=== PATIENT | female | born 1970 | race Caucasian/White ===

== ENCOUNTER 2016-08-24 16:02 | Emergency (ER) | payer MEDICAID ==
[~2016-08-24] VITALS: Ht 154.9 cm; Wt 98.2 kg
[2016-08-24 16:03] VITALS: Ht 154.9 cm; Wt 98.2 kg
--- NOTE | 2016-08-24 16:42 | ERD ---
ER Documentation Chief Complaint Date/Time DATE: 08/24/16 TIME: 16:41 Chief Complaint ABD PAIN RADIATING RT LEG HPI 45-year-old female who presented emergency room for right-sided pelvic pain for more than a month. Pain was described as sharp that radiates to her right lower extremity. Pain got worse today. Pain was described as sharp and squeezing with a rate of over 10 at this time. Also reports whitish vaginal discharge. Sexually active with her only. States that her has whitish penile discharge but no bleeding. Denies headache, loss of consciousness, dizziness, blurry vision, changes in vision, photophobia, facial pain, ear pain, throat pain, difficulty swallowing, neck pain, shoulder pain, chest pain, cough, hemoptysis, back pain, loss of appetite, nausea, vomiting, hematochezia, diarrhea, constipation, hematuria, dysuria, , the possibility of being , vaginal lesions, vaginal rashes, bladder and bowel incontinences, extremity weakness, extremity tenderness, numbness or tingling sensation, difficulty walking, recent travel, recent exposure to illness, recent antibiotic use in the last 3 months, fever, chills. Allergy: Tetracycline, penicillin, azithromycin. PMH: Hypothyroidism. Family medical history: AO LMP: August 14, 2016. Medications: Levothyroxine. Surgery: Denies. Primary Social History: Denies. Denies smoking, use of alcohol, use of illegal drugs. ROS All systems reviewed and are negative except as per history of present illness. Medications Home Meds Active Scripts Ondansetron (Ondansetron Odt) 4 Mg Tab.rapdis, 4 MG PO Q6H Y for NAUSEA AND/OR VOMITING, #10 TAB Prov:NICOLAS ABEL 08/24/16 Hydrocodone/Acetaminophen ([place] 5-325 Tablet) 1 Each Tablet, 1 TAB PO Q6H Y for PAIN, #7 TAB Prov:NICOLAS ABEL 08/24/16 Clindamycin Hcl* (Clindamycin Hcl*) 300 Mg Capsule, 300 MG PO TID for 10 Days, CAP Prov:PASILABANNICOLAS F 08/24/16 Allergies Allergies: Coded Allergies: azithromycin (Unverified Allergy, Intermediate, 08/24/16) Penicillins (Verified Allergy, Mild, 08/24/16) amoxicillin (Verified Allergy, Mild, 08/24/16) tetracycline (Verified Allergy, Unknown, 08/24/16) PMhx/Soc History of Surgery: Yes (caesarian section, appendectomy, gallbladder removal) Anesthesia Reaction: No Hx Neurological Disorder: No Hx Respiratory Disorders: No Hx Cardiac Disorders: No Hx Psychiatric Problems: No Hx Miscellaneous Medical Probl: No Hx Alcohol Use: No Hx Substance Use: No Hx Tobacco Use: No Smoking Status: Never smoker Physical Exam Vitals Vital Signs Date Time Temp Pulse Resp B/P Pulse Ox O2 Delivery O2 Flow Rate FiO2 08/24/16 20:25 99.1 70 18 107/69 96 Room Air 08/24/16 16:03 97.8 80 19 153/79 100 Physical Exam CONSTITUTIONAL: Well-appearing; well-nourished; in no apparent distress. HEAD: Normocephalic; atraumatic. EYES: Conjunctiva clear, sclera non-icteric, EOM intact. PERRL Ears: Hearing intact. EACs clear, TMs non-bulging, non-inflamed, translucent & mobile, ossicles normal appearance, No obstructions, no erythema, no discharges Nose: No obstructions. No polyps. No external lesions. Mucosa non-inflamed. No external lesions, septum and turbinates normal. No rhinorrhea. No discharges. Frontal sinus is non-tender to palpation. Maxillary sinus is non-tender to palpation. MOUTH: Moist mucous membranes, no lesion, no obstructions, no vesicles, no thrush, patent airway Throat: Uvula in midline. Right tonsil is +1 with no erythema, no exudate. Left tonsil is +1 with no erythema, no exudate. Tolerating secretions well. Good gag reflex. Patent airway. Neck: Supple, without lesions, bruits, or adenopathy. No mass. Thyroid non- enlarged and non-tender to palpation. CHEST: Symmetrical chest. Respirations even and not labored. No retractions noted. CARDIOVASCULAR: Normal S1, S2. RRR. No murmurs, gallops. RESPIRATORY: Normal chest excursion with respiration; breath sounds clear and equal bilaterally; no wheezes, rhonchi, or rales. Breathing even and unlabored. Speaking in clear, full, and complete sentences w/ ease. ABDOMEN: Normal bowel sounds normal. Soft, round, non-distended, non-guarding, no rebound, no organomegaly, no masses, no pulsating abdominal mass. No hernia. No peritoneal signs. Right pelvic area has tenderness to palpation. No rebound. Able to jump 5 times without developing right lower abdominal pain. Negative Emma sign. Negative on Rov[place] sign. : No CVA tenderness. BACK: Symmetrical shoulder. Spine is midline without deformity, tenderness. No evidence of trauma or deformity. PELVIS: Stable pelvis. No evidence of trauma or deformity. MUSCULOSKELETAL: Normal gait and station. No misalignment, asymmetry, crepitation, defects, tenderness, masses, effusions, decreased range of motion, instability, atrophy or abnormal strength or tone in the head, neck, spine, ribs , pelvis or extremities. No calf tenderness. NEUROVASCULAR: Distal pulses are present. Pedal pulse are present, equal, and normal. Capillary refills are < 2 seconds. NEUROLOGIC: Alert and oriented x4. Speaks full and clear sentences. Cranial Nerves II-XII normal. Sensation to pain, touch, and proprioception normal. Grossly unremarkable. No neurologic deficits. Romberg test is negative. PSYCHOLOGICAL: The patients mood and manner are appropriate. No hallucinations , delusions. Not SI. Not HI. Has the capacity to decide for self SKIN: Normal for age and ethnicity; warm; dry; good turgor; no apparent lesions or exudates. No rashes, hives, discoloration. Intact. Result Diagram: 08/24/16165608/[id number]/161656 Results 24 hrs Laboratory Tests Test 08/24/16 16:48 08/24/16 16:57 Urine Color LT. YELLOW Urine Clarity CLEAR Urine pH 6.0 Urine Specific [place] <=1.005 Urine Ketones NEGATIVE Urine Nitrite NEGATIVE Urine Bilirubin NEGATIVE Urine Urobilinogen 0.2 E.U./dL Urine Leukocyte Esterase TRACE Urine Microscopic RBC 0-2/HPF Urine Microscopic WBC 0-2/HPF Urine Squamous Epithelial Cells MANY Urine Bacteria RARE Urine Hemoglobin 1+ Urine Glucose NEGATIVE% Urine Total Protein NEGATIVE White Blood Count 10.010^3/ul Red Blood Count 4.9610^6/ul Hemoglobin 12.8g/dl Hematocrit 41.8% Mean Corpuscular Volume 84.3fl Mean Corpuscular Hemoglobin 25.8pg Mean Corpuscular Hemoglobin Concent 30.6g/dl Red Cell Distribution Width 16.3% Platelet Count 87382^3/UL Mean Platelet Volume 9.9fl Neutrophils % 69.0% Lymphocytes % 21.6% Monocytes % 6.9% Eosinophils % 1.6% Basophils % 0.6% Nucleated Red Blood Cells % 0.0/100WBC Neutrophils # 6.910^3/ul Lymphocytes # 2.210^3/ul Monocytes # 0.710^3/ul Eosinophils # 0.210^3/ul Basophils # 0.110^3/ul Nucleated Red Blood Cells # 0.010^3/ul Sodium Level 143mmol/L Potassium Level 4.2mmol/L Chloride Level 102mmol/L Carbon Dioxide Level 26mmol/L Anion Gap 19 Blood Urea Nitrogen 17mg/dl Creatinine 0.90mg/dl Glucose Level 120mg/dl Calcium Level 9.5mg/dl Total Bilirubin 0.3mg/dl Direct Bilirubin 0.00mg/dl Indirect Bilirubin 0.3mg/dl Aspartate Amino Transf (AST/SGOT) 21IU/L Alanine Aminotransferase (ALT/SGPT) 23IU/L Alkaline Phosphatase 76IU/L Total Protein 8.5g/dl Albumin 4.8g/dl Globulin 3.70g/dl Albumin/Globulin Ratio 1.29 Current Medications Medications (Trade) Dose Ordered Sig/Kvng Route PRN Reason Start Time Stop Time Status Last Admin Dose Admin Ceftriaxone Sodium (Rocephin) 250 mg ONCE ONCE IM 08/24/16 18:00 08/24/16 18:01 DC 08/24/16 19:00 Clindamycin HCl (Cleocin) 300 mg ONCE ONCE PO 08/24/16 18:00 08/24/16 18:01 DC 08/24/16 19:00 Procedures/MDM Examination: Please see physical examination. Disease process, medical treatment was explained to the patient and family member. They verbalized understanding and agreed with the diagnostic tests, medical treatment, and follow-up care. Radiology: Pelvic ultrasound Impression: 2 uterine fibroids identified measuring up to 2.2 cm. 1.3 cm minimally complex cystic lesion in the right ovary may be a hemorrhagic or corpus luteal cyst. Blood works: Reviewed. POC urine : Negative. Urinalysis: Reviewed. Case was discussed with supervising emergency room physician, Dr. Rosales Aguilar who agreed in my medical decision making. Treatment: [place]. Zofran. Ceftriaxone. Clindamycin. Re-evaluation: Denies headache, dizziness, blurred vision, neck pain, shoulder pain, chest pain, back pain, abdominal pain, pelvic pain. No episode of emesis here in the emergency department. Denies vaginal bleeding or active bleeding. There is no right upper/right lower/epigastric/left upper/left lower abdominal tenderness on light and deep palpation. Negative on Rovsing sign. Negative on [place] sign. No CVA tenderness. No peritoneal signs. Able to jump 5 times without developing right lower abdominal pain. No neurological deficits. No neurovascular deficits. Consultation: None. Differential diagnosis: Ovarian torsion versus ovarian cyst rupture versus ovarian cyst versus cholecystitis versus appendicitis versus sexually transmitted disease versus bacterial vaginosis Medical decision makin-year-old female who presented emergency room for right-sided pelvic pain for more than a month. Pain was described as sharp that radiates to her right lower extremity. Pain got worse today. Pain was described as sharp and squeezing with a rate of over 10 at this time. Also reports whitish vaginal discharge. Sexually active with her only. States that her has whitish penile discharge but no bleeding. Patient' s complaint, patient's history about her complaint, patient's presentation, my physical findings, diagnostic test results, my reevaluation are consistent with my final diagnosis of STD, PID, ovarian cysts, fibroids. Medications prescribed are the following: Clindamycin p.o. [place]. Zofran. Patient and family member are made aware of the side effects and adverse reactions of the medications prescribed. Instructed on when to seek emergent and medical attention in case allergic/anaphylactic reactions or severe side effects and or adverse reactions to medications. Patient and family member verbalized understanding. Patient instructed Instructed to follow-up with his PCP in 24-48 hours. Follow-up with active directory administrator in the next 48-72 hours. Was also instructed to have her sexual partner be seen and treated by his primary care physician. Instructed to Call 911 for chest pain, shortness of breath. Advised to come back here in ED as soon as possible for severity of symptoms which includes but not limited to: any new symptoms; shortness of breath/difficulty of breathing; cardiovascular changes; severe gastrointestinal symptoms; signs and symptoms of bleeding and or infection; signs of compartment syndrome/neurovascular changes; neurological changes/deficits. Patient and family member verbalized understanding. Upon discharge, patient is alert and oriented x 4, speaks full and clear sentences, denies pain, has no neurological deficits, has no neurovascular deficits, difficulty of breathing. Breathing even and unlabored. Lung sounds are clear to auscultation. Not in distress. Appears comfortable. Ambulatory with steady gait. No active bleeding. Appears satisfied with care provided here in ED. hemodynamically stable on discharge. Departure Diagnosis: Primary Impression: STD (female) Additional Impression: PID (acute pelvic inflammatory disease) Additional Instructions: Patient instructed Instructed to follow-up with his PCP in 24-48 hours. Follow-up with active directory administrator in the next 48-72 hours. Instructed to Call 911 for chest pain, shortness of breath. Advised to come back here in ED as soon as possible for severity of symptoms which includes but not limited to: any new symptoms; shortness of breath/difficulty of breathing; cardiovascular changes; severe gastrointestinal symptoms; signs and symptoms of bleeding and or infection; signs of compartment syndrome/neurovascular changes; neurological changes/deficits. Patient and family member verbalized understanding. NICOLAS ABEL August 24, 2016 16:42
[2016-08-24 17:04] LABS: ADD UMIC YES; URINE BILIRUBIN (Dip) NEGATIVE (NEGATIVE); URINE BLOOD (Dip) 1+ (NEGATIVE); URINE COLOR LT. YELLOW (YELLOW); URINE GLUCOSE (Dip) NEGATIVE (NEGATIVE); URINE KETONES (Dip) NEGATIVE (NEGATIVE); URINE LEUKOCYTE ESTERASE (Dip) TRACE (NEGATIVE); URINE NITRITE (Dip) NEGATIVE (NEGATIVE); URINE TOTAL PROTEIN (Dip) NEGATIVE (NEGATIVE); URINE UROBILINOGEN (Dip) 0.2 E.U./dL (0.1-1.0)
[2016-08-24 17:16] LABS: ADD SCAN DIFF NO
[2016-08-24 17:17] LABS: URINE RBCS 0-2 /HPF (0)
[2016-08-24 17:18] LABS: BASOPHIL # 0.1 10^3/ul (0.0-0.1); BASOPHILS % 0.6 % (0.0-2.0); EOSINOPHILS # 0.2 10^3/ul (0.0-0.5); EOSINOPHILS % 1.6 % (0.0-7.0); HEMATOCRIT 41.8 % (37.0-47.0); HEMOGLOBIN 12.8 g/dl (12.0-16.0); LYMPHOCYTES # 2.2 10^3/ul (0.8-2.9); LYMPHOCYTES % 21.6 % (15.0-51.0); MEAN CORPUSCULAR HEMOGLOBIN 25.8 pg (29.0-33.0); MEAN CORPUSCULAR HGB CONC 30.6 g/dl (32.0-37.0); MEAN CORPUSCULAR VOLUME 84.3 fl (82.0-101.0); MEAN PLATELET VOLUME 9.9 fl (7.4-10.4); MONOCYTE # 0.7 10^3/ul (0.3-0.9); MONOCYTES % 6.9 % (0.0-11.0); NEUTROPHIL # 6.9 10^3/ul (1.6-7.5); PLATELET COUNT 511 10^3/UL (140-415); RED BLOOD COUNT 4.96 10^6/ul (4.20-5.40); RED CELL DISTRIBUTION WIDTH 16.3 % (11.5-14.5)
[2016-08-24 17:18] LABS: BACTERIA,URINE RARE; SQUAMOUS EPITHELIAL CELL,UR MANY
--- NOTE | 2016-08-24 17:43 | RADRPT ---
PROCEDURE: US Pelvis CLINICAL INDICATION: right pelvic pain that radiates to right leg TECHNIQUE: Multiple sonographic images of the pelvis were obtained utilizing a transabdominal and endovaginal technique. The images were reviewed on a PACS workstation. COMPARISON: None. LMP: 08/13/2016 FINDINGS: The uterus is retroverted and measures 9.5 x 7.3 x 7.2 cm. The endometrial echo complex measures 10 mm in thickness. There is a 1.9 cm posterior intramural fibroid at the level of the upper body. There is a 2.2 cm anterior subserosal fibroid at the level of the upper body. The right ovary measures 3.4 x 2.7 x 2.4 cm. The left ovary measures 3.4 x 2.6 x 2.1 cm. There is no rmal vascular flow in both ovaries. There is a 1.3 cm cystic lesion with an eccentric low level internal echoes in the right ovary which may be a hemorrhagic or corpus luteal cyst. No significant pelvic free fluid is identified. IMPRESSION: 2 uterine fibroids are identified measuring up to 2.2 cm. 1.3 cm minimally complex cystic lesion in the right ovary may be a hemorrhagic or corpus luteal cyst . RPTAT: EE Physician Martha Date Time Electronically viewed and signed by Physician Martha on 08/24/2016 17:43 VALERIE
[2016-08-24 17:48] LABS: ALBUMIN 4.8 g/dl (3.3-4.9); POTASSIUM 4.2 mmol/L (3.5-5.1)
[2016-08-24 17:50] LABS: CREATININE 0.9 mg/dl (0.44-1.00)
[2016-08-24 17:51] LABS: ALBUMIN/GLOBULIN RATIO 1.29; BILIRUBIN,INDIRECT 0.3 mg/dl (0-1.1); BILIRUBIN,TOTAL 0.3 mg/dl (0.2-1.3); CALCIUM 9.5 mg/dl (8.4-10.2); TOTAL PROTEIN 8.5 g/dl (6.1-8.1)
[2016-08-24] MEDS ORDERED: CLINDAMYCIN 300 MG CAP PO ONE (18:00)
[2016-08-24] MEDS ORDERED: CEFTRIAXONE 250 MG INJ IM ONE (18:00)
[2016-08-24] MEDS ORDERED: CLIN-73 PO (18:06)
[2016-08-24] MEDS ORDERED: ONDA4TAB14 PO (18:06)
[2016-08-24] MEDS ORDERED: HYDR-906 PO (18:06)
[2016-08-24 20:25] VITALS: BP 107/69; PULSE 70; RESP 18; TEMP 99.1
== END 2016-08-24 20:24 | disposition home or self-care (01) ==
LOC: FTE 16:02
DX: A64 Unspecified sexually transmitted disease (principal); N73.0 Acute parametritis and pelvic cellulitis
CPT/HCPCS: 76830; 76856; 80053; 81001; 85025; 87086; 87591; 96372; J0696; Z7502; Z7610; 81003

== ENCOUNTER 2017-04-22 23:06 | Emergency (ER) | END 2017-04-23 02:26 | disposition home or self-care (01) ==

== ENCOUNTER 2017-08-03 01:24 | Emergency (ER) | END 2017-08-03 03:14 | disposition home or self-care (01) ==

== ENCOUNTER 2017-10-22 20:48 | Emergency (ER) | END 2017-10-22 23:45 | disposition home or self-care (01) ==

== ENCOUNTER 2017-12-19 12:12 | Emergency (ER) | END 2017-12-19 14:08 | disposition home or self-care (01) ==